=== PATIENT | female | born 1960 | race Caucasian/White ===

== ENCOUNTER 2016-10-03 04:41 | Emergency (ER) | payer OTHER ==
[2016-10-03] MEDS ORDERED: IPRATROPIUM/ALBUTEROL 3 ML NEB INH STA (04:49)
[2016-10-03] MEDS ORDERED: IPRATROPIUM/ALBUTEROL 3 ML NEB INH ONE (04:54)
[2016-10-03] MEDS ORDERED: DEXAMETHASONE 10 MG/ML VIAL PO STA (05:31)
[2016-10-03] MEDS ORDERED: CHERRY SYRUP 10 ML UDC PO ONE (05:32)
[2016-10-03] MEDS ORDERED: DEXAMETHASONE 10 MG/ML VIAL ONE (05:32)
[2016-10-03] MEDS ORDERED: POTASSIUM BICARB 25 MEQ TABLET PO STA (06:09)
[2016-10-03] MEDS ORDERED: POTASSIUM BICARB 25 MEQ TABLET PO ONE (06:10)
== END 2016-10-03 06:20 | disposition home or self-care (01) ==
DX: J06.9 Acute upper respiratory infection, unspecified (principal); B97.89 Other viral agents as the cause of diseases classified elsewhere; J44.9 Chronic obstructive pulmonary disease, unspecified; J45.909 Unspecified asthma, uncomplicated; I10 Essential (primary) hypertension; Z79.82 Long term (current) use of aspirin
CPT/HCPCS: 36415; 71020; 80053; 83690; 84484; 85025; 93005; 93010; 94640; 99284; A9270; J7620

== ENCOUNTER 2020-03-29 19:13 | Emergency (ER) | payer OTHER ==
[2020-03-29 19:25] VITALS: BP 140/76
[2020-03-29] MEDS ORDERED: BUFFERED LIDOCAINE 10 ML SYRINGE SUBQ STA (20:23)
--- NOTE | 2020-03-29 20:24 | ED Physician Documentation ---
History of Present Illness - Stated complaint Stated Complaint: INGUINAL INFLAMATION - Chief complaint Chief Complaint: General - History obtained from History obtained from: Patient - Additonal information Additional information: She had an ingrown hair about 5 days ago that she pulled out, subsequently got a red swollen area in the left inguinal area. She was seen in urgent care 2 days ago and started on Bactrim, but got worried tonight because of more discoloration. Other than that she has no specific complaints. Pain is not worsening. No fevers. Review of Systems Constitutional: denies: Fever, Chills GI: denies: Abdominal Pain, Nausea, Vomiting : reports: Reviewed and negative PD PAST MEDICAL HISTORY - Past Medical History Cardiovascular: Hypertension Respiratory: Asthma - Past Surgical History Past Surgical History: Yes - Present Medications Home Medications: Ambulatory Orders Medication Instructions Recorded Confirmed Albuterol Sulf [Ventolin Hfa 1 - 2 puffs INH Q4HR PRN 10/03/16 10/03/16 Inhaler] Aspirin 81 mg PO DAILY 10/03/16 10/03/16 Azithromycin 250 mg PO DAILY 10/03/16 10/03/16 Metoprolol Tartrate 25 mg ORAL DAILY 10/03/16 10/03/16 Telmisartan [Micardis] 20 mg PO DAILY 10/03/16 10/03/16 predniSONE [Prednisone] 50 mg PO DAILY 10/03/16 10/03/16 - Allergies Allergies/Adverse Reactions: Allergies Allergy/AdvReac Type Severity Reaction Status Date / Time No Known Drug Allergies Allergy Verified 03/29/20 19:18 - Social History Does the pt smoke?: No Smoking Status: Never smoker Does the pt drink ETOH?: No Does the pt have substance abuse?: No - Immunizations Immunizations are current?: Yes - POLST Patient has POLST: No PD ED PE NORMAL - Vitals Vital signs reviewed: Yes - General General: Alert and oriented X 3, No acute distress - Derm Derm: Other (There is a pointed 2 cm abscess on the left side of the pubic mons with mild overlying cellulitis) - Extremities Extremities: No edema, No calf tenderness / cord - Neuro Neuro: Alert and oriented X 3, Normal speech Results - Vitals Vitals: Vital Signs - 24 hr 03/29/20 19:18 Temperature 36.6 C Heart Rate 87 Respiratory 16 Rate Blood Pressure 140/76 H O2 Saturation 97 Oxygen O2 Source Room air - Labs Labs: Microbiology 03/29/20 20:40 Wound Culture - Preliminary Abscess Procedures - Abscess I&D (location) L inguinal Preparation: Alcohol, Lidocaine 1% Incision: Incised with scalpel, Purulent drainage, Loculations broken, Culture obtained Other: Pt tolerated well, Dressing applied. No: Antibiotic prescribed (already on bactrim) Departure - Departure Disposition: 01 Home, Self Care Clinical Impression: Inguinal abscess Condition: Good Instructions: ED Abscess IandD Comments: We are performing a wound culture, the results should be done in 48-72 hours. If antibiotic change is necessary we will call you. Return if worse in the meantime, especially if you develop increased pain, fevers, cannot keep down the medication. Otherwise follow-up with your physician in approximately 2-3 days. For now continue the Bactrim. Discharge Date/Time: 03/29/20 20:49
== END 2020-03-29 20:49 | disposition home or self-care (01) ==
LOC: ED 19:13
DX: L02.214 Cutaneous abscess of groin (principal)
CPT/HCPCS: 10060; 87070; 87205

== ENCOUNTER 2020-03-30 14:41 | Inpatient (IN) | payer OTHER ==
--- NOTE | 2020-03-30 15:29 | ED Physician Documentation ---
PD HPI NVD - Chief complaint Chief Complaint: Fever - History obtained from History obtained from: Patient - History of Present Illness Timing - onset: How many days ago (5-6) Timing - duration: Days (Issue with some swelling and tenderness in the left inguinal area 5 to 6 days ago that did increase. She was seen in the office 3 days ago and prescribed Bactrim. She was on that couple of days with still worsening local swelling. Seen here yesterday for I&D. General malaise and fevers overnight.) Timing - details: Gradual onset, Still present Associated symptoms: Fever, Loss of appetite, Other (fatigue and general malaise last night/today). No: Abdominal pain Contributing factors: Recent antibiotics. No: Sick contact, Bad food Worsened by: Palpation Recently seen: Clinic, Emergency Dept Review of Systems Constitutional: reports: Fever, Chills, Myalgias, Fatigue Nose: denies: Rhinorrhea / runny nose, Congestion Throat: denies: Sore throat Respiratory: denies: Cough GI: reports: Nausea. denies: Abdominal Pain, Vomiting, Diarrhea Neurologic: reports: Generalized weakness. denies: Focal weakness, Numbness, Near syncope, Headache PD PAST MEDICAL HISTORY - Past Medical History Cardiovascular: Hypertension Respiratory: Asthma - Past Surgical History Past Surgical History: Yes - Present Medications Home Medications: Ambulatory Orders Medication Instructions Recorded Confirmed Albuterol Sulf [Ventolin Hfa 1 - 2 puffs INH Q4HR PRN 10/03/16 10/03/16 Inhaler] Aspirin 81 mg PO DAILY 10/03/16 10/03/16 Azithromycin 250 mg PO DAILY 10/03/16 10/03/16 Metoprolol Tartrate 25 mg ORAL DAILY 10/03/16 10/03/16 Telmisartan [Micardis] 20 mg PO DAILY 10/03/16 10/03/16 predniSONE [Prednisone] 50 mg PO DAILY 10/03/16 10/03/16 - Allergies Allergies/Adverse Reactions: Allergies Allergy/AdvReac Type Severity Reaction Status Date / Time No Known Drug Allergies Allergy Verified 03/30/20 15:00 - Social History Does the pt smoke?: No Smoking Status: Never smoker Does the pt drink ETOH?: No Does the pt have substance abuse?: No - Immunizations Immunizations are current?: Yes - POLST Patient has POLST: No PD ED PE NORMAL - Vitals Vital signs reviewed: Yes - General General: Alert and oriented X 3, Well developed/nourished - HEENT HEENT: Moist mucous membranes - Neck Neck: Supple, no meningeal sign, No adenopathy - Cardiac Cardiac: RRR, No murmur - Respiratory Respiratory: Clear bilaterally - Abdomen Abdomen: Soft, Non tender - Back Back: No CVA TTP - Derm Derm: Normal color, Warm and dry, Other (Left inguinal area with open wound consistent with I&D. Mild draining of blood. No purulence expressed. There is some induration in the area but no fluctuance. No deeper tenderness noted) - Neuro Neuro: Alert and oriented X 3, No motor deficit, Normal speech Results - Vitals Vitals: Vital Signs - 24 hr 03/30/20 03/30/20 03/30/20 15:00 15:42 16:19 Temperature 39.2 C H 39.1 C H 39.5 C H Heart Rate 93 88 84 Respiratory 16 18 18 Rate Blood Pressure 136/60 H 124/61 109/66 O2 Saturation 94 96 98 03/30/20 17:26 Temperature 38.8 C H Heart Rate 81 Respiratory 18 Rate Blood Pressure 112/57 L O2 Saturation 98 Oxygen O2 Source Room air - Labs Labs: Laboratory Tests 03/30/20 03/30/20 03/30/20 15:21 15:21 15:21 WBC 8.3 RBC 4.64 Hgb 13.6 Hct 39.5 MCV 85.1 MCH 29.3 MCHC 34.4 RDW 13.2 Plt Count 190 MPV 9.3 Neut # (Auto) 7.5 H Lymph # (Auto) 0.3 L [place] # (Auto) 0.4 Eos # (Auto) 0.0 Baso # (Auto) 0.0 Absolute Nucleated RBC 0.00 Nucleated RBC % 0.0 PT 13.4 H INR 1.2 APTT 25.0 Sodium 131 L Potassium 3.4 L Chloride 93 L Carbon Dioxide 26 Anion Gap 12.0 BUN 13 Creatinine 0.9 Estimated GFR (MDRD) 64 L Glucose 127 H Lactic Acid Calcium 9.2 Total Bilirubin 1.0 AST 15 ALT 21 Alkaline Phosphatase 75 Total Protein 8.0 Albumin 4.2 Globulin 3.8 Albumin/Globulin Ratio 1.1 Lipase 27 Urine Color Urine Clarity Urine pH Ur Specific [place] Urine Protein Urine Glucose (UA) Urine Ketones Urine Occult Blood Urine Nitrite Urine Bilirubin Urine Urobilinogen Ur Leukocyte Esterase Ur Microscopic Review Urine Culture Comments 03/30/20 03/30/20 15:27 17:20 WBC RBC Hgb Hct MCV MCH MCHC RDW Plt Count MPV Neut # (Auto) Lymph # (Auto) [place] # (Auto) Eos # (Auto) Baso # (Auto) Absolute Nucleated RBC Nucleated RBC % PT INR APTT Sodium Potassium Chloride Carbon Dioxide Anion Gap BUN Creatinine Estimated GFR (MDRD) Glucose Lactic Acid 1.0 Calcium Total Bilirubin AST ALT Alkaline Phosphatase Total Protein Albumin Globulin Albumin/Globulin Ratio Lipase Urine Color YELLOW Urine Clarity CLEAR Urine pH 5.5 Ur Specific [place] 1.025 Urine Protein NEGATIVE Urine Glucose (UA) NEGATIVE Urine Ketones NEGATIVE Urine Occult Blood MODERATE H Urine Nitrite NEGATIVE Urine Bilirubin NEGATIVE Urine Urobilinogen 0.2 (NORMAL) Ur Leukocyte Esterase NEGATIVE Ur Microscopic Review INDICATED Urine Culture Comments Not Reportable PD MEDICAL DECISION MAKING - ED course Complexity details: reviewed results (No drainable or deeper abscess noted. No soft tissue findings to suggest necrotizing fasciitis.), re-evaluated patient (Her sepsis markers are negative with a normal white count and lactate. Her heart rate is normal. Her blood pressure is normal though it did decrease some in the ER so a bit softer blood pressure. She does have a fever.), considered differential (He presents with general fatigue and malaise and fever in the setting of inguinal abscess that had I&D yesterday. Concern for potential bacteremia or early sepsis.), d/w patient Departure - Departure Disposition: ED Place in Observation Clinical Impression: Inguinal abscess, Malaise and fatigue Fever Qualifiers: Fever type: unspecified Qualified Code(s): R50.9 - Fever, unspecified Condition: Stable Record reviewed to determine appropriate education?: Yes
[2020-03-30 15:36] LABS: BASOPHILS % (AUTO) 0.5 %; EOSINOPHILS % (AUTO) 0.1 %; HGB - HEMOGLOBIN 13.6 g/dL (12.0-16.0); LYMPHOCYTES # (AUTO) 0.3 10^3/uL (1.5-3.5); LYMPHOCYTES % (AUTO) 3.1 %; MEAN CORPUSCULAR HEMOGLOBIN 29.3 pg (27.0-31.0); MEAN CORPUSCULAR HGB CONC 34.4 g/dL (32.0-36.0); MEAN CORPUSCULAR VOLUME 85.1 fL (81.0-99.0); MEAN PLATELET VOLUME 9.3 fL (7.9-10.8); MONOCYTES # (AUTO) 0.4 10^3/uL (0.0-1.0); MONOCYTES % (AUTO) 4.9 %; NEUTROPHILS # (AUTO) 7.5 10^3/uL (1.5-6.6); PLT - PLATELET COUNT 190 10^3/uL (130-450); RED BLOOD COUNT 4.64 10^6/uL (4.20-5.40); RED CELL DISTRIBUTION WIDTH 13.2 % (12.0-15.0); WHITE BLOOD COUNT 8.3 x10^3/uL (4.8-10.8)
[2020-03-30 15:39] LABS: INR 1.2 (0.8-1.2); PT - PROTHROMBIN TIME 13.4 secs (9.9-12.6)
[2020-03-30 15:45] LABS: ALBUMIN 4.2 g/dL (3.2-5.5); ALBUMIN/GLOBULIN RATIO 1.1 (1.0-2.2); CALCIUM 9.2 mg/dL (8.5-10.3); CREATININE 0.9 mg/dL (0.4-1.0)
[2020-03-30] MEDS ORDERED: CLINDAMYCIN 900 MG/50 ML 50 ML IV ONE (15:53)
[2020-03-30] MEDS ORDERED: SODIUM CHLORIDE 0.9% 1,000 ML IV STA ×2 (15:56→16:42)
[2020-03-30] MEDS ORDERED: ACETAMINOPHEN 325 MG TABLET PO STA (16:20)
[2020-03-30] MEDS ORDERED: IOVERSOL 320 100 ML VIAL IVP ONE ×2 (16:47→17:07)
--- NOTE | 2020-03-30 17:30 | CT Report ---
PROCEDURE: PELVIS W INDICATIONS: abscess left inguinal area; eval for deeper extens CONTRAST: IV CONTRAST: Optiray 320 ml: 100 PO CONTRAST: *NO PO CONTRAST TECHNIQUE: After the administration of oral contrast and intravenous contrast, 5 mm thick sections acquired from the iliac crests to the symphysis. 5 mm thick coronal and sagittal reformats were acquired. For ra diation dose reduction, the following was used: automated exposure control, adjustment of mA and/or kV according to patient size. COMPARISON: None FINDINGS: Image quality: Excellent. Peritoneum and bowel: Contrast enhanced bowel loops demonstrate normal wall thickness and caliber. No free fluid or air. Mild sigmoid diverticulosis is seen, without findings of active diverticulitis . A normal appendix is incidentally noted. Genitourinary: Bladder wall thickness is normal. Fibroid uterus can be seen. No constantino adnexal masses are seen. Nodes and vessels: No iliac, pelvic, or inguinal adenopathy. Iliac vessels demonstrate normal size and enhancement. Bones: No suspicious bony lesions. Degenerative changes are seen, particularly involving the visual ized lower lumbar spine. Miscellaneous: Within the left groin, partially involving the left labia majora, there is focal enha ncement seen with surrounding inflammatory changes within the fat. This is best seen on series 5 imag e 24 and on series 3 image 50. No focal fluid collection is seen to suggest an abscess, however. IMPRESSION: No drainable abscess is seen within the left groin. The imaging appearance is most consistent with ad vanced cellulitis and potentially early phlegmon. Incidental note is made of: Normal appendix Fibroid uterus Diverticulosis can be seen, without constantino findings of active diverticulitis. Reviewed by: Hansel Courtney MD on 03/30/2020 4:28 PM AKJOSÉ Approved by: Hansel Courtney MD on 03/30/2020 4:28 PM AKDT Station ID: [id number]
[2020-03-30 17:36] LABS: BILIRUBIN,URINE NEGATIVE (NEGATIVE); GLUCOSE, URINE (UA) NEGATIVE (NEGATIVE); KETONES,URINE (UA) NEGATIVE (NEGATIVE); LEUKOCYTE ESTERASE, URINE NEGATIVE (NEGATIVE); NITRITE,URINE NEGATIVE (NEGATIVE); OCCULT BLOOD,URINE MODERATE (NEGATIVE); PH,URINE 5.5 PH (5.0-7.5); PROTEIN,URINE NEGATIVE (NEGATIVE); UROBILINOGEN,URINE 0.2 (NORMAL) E.U./dL (NORMAL)
[2020-03-30 17:38] LABS: CLARITY,URINE CLEAR (CLEAR)
[2020-03-30] MEDS ORDERED: ACETAMINOPHEN 325 MG TABLET PO PRN (17:41)
[2020-03-30] MEDS ORDERED: ONDANSETRON ODT 4 MG TABLET TL PRN (17:41)
[2020-03-30] MEDS ORDERED: ONDANSETRON 4 MG/2 ML VIAL IVP PRN (17:41)
[2020-03-30] MEDS ORDERED: oxyCODONE 5 MG TABLET PO PRN (17:41)
[2020-03-30 17:48] LABS: BACTERIA,URINE None Seen /HPF (None Seen); RBC,URINE 0-5 /HPF (0-5); SQUAMOUS EPITHELIAL CELL,UR NONE SEEN (<= Few)
[2020-03-30] MEDS: CLINDAMYCIN 600 MG/50 ML 50 ML IV SCH (19:27)
[2020-03-30] MEDS: LACTATED RINGERS 1,000 ML IV SCH (19:49)
--- NOTE | 2020-03-30 21:02 | HISTORY & PHYSICAL EXAMINATION ---
Chief Complaint - Chief Complaint Chief Complaint: fever, left inguinal/groin swelling History of Present Illness - Admitted From Admitted From:: [facility] ED - History Obtained From Records Reviewed: Yes History obtained from: Patient - History of Present Illness HPI Comment/Other: Patient is a 59-year-old female with history of hypertension who presented to the ED with complaint of a fever, and increased redness around her left groin abscess site. She was seen by her primary care physician 3 days ago when she initially started noticing redness and swelling in the area. She was prescribed Bactrim which she has been taking. At the time of prescription she was advised to go to the ED or return to her PCP if there was increase redness or swelling in the area. She presented to the emergency department at [facility] on March 29, 2020 for increased redness. The abscess was incised and drained. Since drainage yesterday she has not been feeling well and presented today with reported temperature of 39.5 C. Her labs were unremarkable however due to the fever and increased swelling she is being admitted for IV antibiotics and closer monitoring. At bedside she denied chest pain, dyspnea, abdominal pain, nausea, vomiting or lower extremity edema. History - Past Medical History Cardiovascular: reports: Hypertension Respiratory: reports: Asthma Neuro: reports: None Endocrine/Autoimmune: reports: None GI: reports: None BUNDLE TIER AND LABELER: reports: None : reports: None HEENT: reports: None Psych: reports: None Musculoskeletal: reports: None Derm: reports: None MRSA Hx?: No - Past Surgical History /BUNDLE TIER AND LABELER: reports: Tubal ligation - Family & Social History Family History Comment/Other: Patient reports extensive family history of CVA in her grandparents on both sides of the family and hypertension. Living arrangement: At home Living Situation: With spouse/s.o. Social History Notes: She denied tobacco use, she rarely drinks alcohol and denies recreational substance use. - POLST Patient has POLST: No POLST Status: Full Code Meds/Allgy - Home Medications Home Medications: Ambulatory Orders Medication Instructions Recorded Confirmed Albuterol Sulf [Ventolin Hfa 1 - 2 puffs INH Q4HR PRN 10/03/16 10/03/16 Inhaler] Aspirin 81 mg PO DAILY 10/03/16 10/03/16 Azithromycin 250 mg PO DAILY 10/03/16 10/03/16 Metoprolol Tartrate 25 mg ORAL DAILY 10/03/16 10/03/16 Telmisartan [Micardis] 20 mg PO DAILY 10/03/16 10/03/16 predniSONE [Prednisone] 50 mg PO DAILY 10/03/16 10/03/16 - Allergies Allergies/Adverse Reactions: Allergies Allergy/AdvReac Type Severity Reaction Status Date / Time No Known Drug Allergies Allergy Verified 03/30/20 15:00 Review of Systems - Constitutional Constitutional: reports: Fever, Malaise. denies: Weakness - Eyes Eyes: denies: Pain - Ears, Nose & Throat Ears, Nose & Throat: denies: Ear pain - Cardiovascular Cariovascular: denies: Irregular heart rate, Chest pain, Edema, Lightheadedness - Respiratory Respiratory: denies: Cough, Sputum production, Wheezing, SOB at rest, SOB with exertion - Gastrointestinal Gastrointestinal: denies: Abdominal pain - Genitourinary Genitourinary: denies: Dysuria, Frequency, Urgency, Hematuria - Musculoskeletal Musculoskeletal: denies: Muscle pain, Back pain - Integumentary Integumentary: denies: Rash, Pruritis - Neurological Neurological: denies: General weakness, Focal weakness, Headache, Dizziness - Psychiatric Psychiatric: denies: Depression, Anxiety - Endocrine Endocrine: denies: Polyuria, Polydypsia - Hematologic/Lymphatic Hematologic/Lymphatic: denies: Anemia, Bruising, Petechiae Prior Level of Functionality: She is independent of activities of daily living Exam - Vital Signs Vital Signs: Vital Signs x48h Temp Pulse Pulse Resp BP BP Pulse Ox 03/30/20 20:16 37.5 C 78 20 108/51 L 99 03/30/20 18:30 37.6 C H 79 19 109/57 L 97 03/30/20 18:00 77 112/53 L 97 03/30/20 17:26 38.8 C H 81 18 112/57 L 98 03/30/20 16:19 39.5 C H 84 18 109/66 98 03/30/20 15:42 39.1 C H 88 18 124/61 96 03/30/20 15:00 39.2 C H 93 16 136/60 H 94 - Physical Exam General Appearance: positive: No acute distress, Alert Eyes Bilateral: positive: PERRL, EOMI ENT: positive: No signs of dehydration Neck: positive: No JVD, Trachea midline Respiratory: positive: Chest non-tender, No respiratory distress, Breath sounds nml. negative: Wheezes, Rales, Rhonchi Cardiovascular: positive: Regular rate & rhythm, No murmur Abdomen: positive: Non-tender, No organomegaly, Nml bowel sounds, No distention. negative: Guarding, Rebound Back: positive: Nml inspection Skin: positive: Other (redness around incision site on left groin) Extremities: positive: Nml appearance, No pedal edema Neurologic/Psychiatric: positive: Oriented x3, Motor nml, Sensation nml, Mood/af fect nml Conclusion/Plan - Problem List (1) Inguinal abscess Conclusion/Plan: Status post I&D yesterday. Patient was started on IV clindamycin. Will continue. We will monitor CBC and vitals. Blood cultures pending. (2) Hypertension Conclusion/Plan: Patient is on metoprolol and Micardis. Will resume once verified. - Lab Results Fish Bones: 03/30/20 15:21 03/30/20 15:21 Core Measures - Anticipated LOS I expect patient to be DC'd or transferred within 96 hours.: Yes - DVT/VTE - Prophylaxis VTE/DVT Device ordered at admit?: Yes
[2020-03-30] MEDS: ACETAMINOPHEN 325 MG TABLET PO PRN (22:06)
[2020-03-31] MEDS: CLINDAMYCIN 600 MG/50 ML 50 ML IV SCH ×2 (00:40→06:55)
[2020-03-31] MEDS: IBUPROFEN 400 MG TABLET PO PRN ×2 (00:41→14:39)
[2020-03-31] MEDS: SODIUM CHLORIDE FLUSH 0.9% 10 ML SYRINGE IVP SCH ×3 (02:50→10:37)
[2020-03-31 05:32] LABS: BASOPHILS % (AUTO) 0.8 %; EOSINOPHILS # (AUTO) 0.1 10^3/uL (0.0-0.7); EOSINOPHILS % (AUTO) 1.9 %; HGB - HEMOGLOBIN 11.3 g/dL (12.0-16.0); LYMPHOCYTES # (AUTO) 0.5 10^3/uL (1.5-3.5); LYMPHOCYTES % (AUTO) 12.9 %; MEAN CORPUSCULAR HEMOGLOBIN 28.9 pg (27.0-31.0); MEAN CORPUSCULAR HGB CONC 33.5 g/dL (32.0-36.0); MEAN CORPUSCULAR VOLUME 86.2 fL (81.0-99.0); MEAN PLATELET VOLUME 9.4 fL (7.9-10.8); MONOCYTES # (AUTO) 0.3 10^3/uL (0.0-1.0); MONOCYTES % (AUTO) 8.2 %; NEUTROPHILS # (AUTO) 2.8 10^3/uL (1.5-6.6); NEUTROPHILS % (AUTO) 75.7 %; PLT - PLATELET COUNT 154 10^3/uL (130-450); RED BLOOD COUNT 3.91 10^6/uL (4.20-5.40); RED CELL DISTRIBUTION WIDTH 13.2 % (12.0-15.0); WHITE BLOOD COUNT 3.6 x10^3/uL (4.8-10.8)
[2020-03-31 05:48] LABS: CALCIUM 8.2 mg/dL (8.5-10.3); CREATININE 0.9 mg/dL (0.4-1.0); CRP - C-REACTIVE PROTEIN 8.7 mg/dL (0-1.0)
[2020-03-31] MEDS: LACTATED RINGERS 1,000 ML IV SCH (06:10)
[2020-03-31] MEDS ORDERED: LACTATED RINGERS 1,000 ML IV ONE (06:52)
[2020-03-31] MEDS ORDERED: POTASSIUM CHLORIDE 20 MEQ TABLET PO ONE (07:06)
--- NOTE | 2020-03-31 09:47 | XRAY Report ---
PROCEDURE: Chest 1 View X-Ray INDICATIONS: sepsis TECHNIQUE: One view of the chest was acquired. COMPARISON: Chest x-ray 10/03/2016 FINDINGS: Surgical changes and devices: None. Lungs and pleura: No pleural effusions or pneumothorax. Lungs are clear. Mediastinum: Mediastinal contours appear normal. Heart size is normal. Bones and chest wall: No suspicious bony lesions. Overlying soft tissues appear unremarkable. IMPRESSION: No acute pulmonary process. Reviewed by: Radha Mantilla MD on 03/31/2020 9:46 AM PDT Approved by: Radha Mantilla MD on 03/31/2020 9:46 AM PDT Station ID: [id number]
[2020-03-31] MEDS ORDERED: PIPERACILLIN/TAZOBACTAM 3.375 GM in SODIUM CHLORIDE 0.9% MINIBAG 100 ML IV SCH (10:00)
--- NOTE | 2020-03-31 10:43 | PHARMACY PROGRESS NOTE ---
- Best Possible Medication History Admit Date and Time: 03/31/20 0715 Processed by: Pharmacy Medication History completed: Yes Patient Interview: Completed Secondary Source(s): Insurance records As the person ultimately responsible for medication therapy, providers are able to order a medication from an existing home medication list in [facility] via the "Reconcile Routine" prior to Confirmation of that medication by bioinformatics support specialist. Such practice is discouraged except when the physician, in their clinical judgment, deems that a medical need exists for a medication without regard to previous use.
[2020-03-31] MEDS: PIPERACILLIN/TAZOBACTAM 3.375 GM in SODIUM CHLORIDE 0.9% MINIBAG 100 ML IV SCH ×2 (14:16→21:52)
[2020-03-31] MEDS: SODIUM CHLORIDE FLUSH 0.9% 10 ML SYRINGE IVP PRN (14:17)
--- NOTE | 2020-03-31 15:32 | PROVIDER PROGRESS NOTE ---
Subjective - Prog Note Date Prog Note Date: 03/31/20 Prog Note Time: 15:35 - Subjective Subjective: Overnight she continues to spike temperatures. This morning she became suddenly hypotensive. Mildly diaphoretic. She denies chest pain, cough, sore throat. No change in abdominal complaints. The only thing that she can feel is wrong with her is the groin but even then that is not as symptomatic as it was. Current Medications - Current Medications Current Medications: Active Medications Acetaminophen (Tylenol) 650 mg PO Q4HR PRN PRN Reason: Pain or Fever > 38C (100.4F) Last Admin: 03/30/20 22:06 Dose: 650 mg Documented by: Piperacillin Sod/Tazobactam (Sod 3.375 gm/ Sodium Chloride) 100 mls @ 200 mls/hr IV ONCE [facility] Stop: 03/31/20 18:00 Last Admin: 03/31/20 10:37 Dose: 200 mls/hr Documented by: Piperacillin Sod/Tazobactam (Sod 3.375 gm/ Sodium Chloride) 100 mls @ 25 mls/hr IV Q8H [facility] Last Admin: 03/31/20 14:16 Dose: 25 mls/hr Documented by: Ibuprofen (Motrin) 400 mg PO Q6HR PRN PRN Reason: PAIN Last Admin: 03/31/20 14:39 Dose: 400 mg Documented by: Ondansetron HCl (Zofran Odt) 4 mg TL Q6HR PRN PRN Reason: Nausea / Vomiting Ondansetron HCl (Zofran Inj) 4 mg IVP Q6HR PRN PRN Reason: Nausea / Vomiting Oxycodone HCl (Roxicodone) 5 mg PO Q4HR PRN PRN Reason: Pain 5 to 7 Sodium Chloride (Normal Saline Flush 0.9%) 10 ml IVP PRN PRN PRN Reason: NEEDED PER PROVIDER ORDERS Last Admin: 03/31/20 14:17 Dose: 10 ml Documented by: Sodium Chloride (Normal Saline Flush 0.9%) 10 ml IVP 0100,0900,1700 [facility] Last Admin: 03/31/20 10:37 Dose: 10 ml Documented by: Albuterol Sulf [Ventolin Hfa Inhaler] 1 - 2 puffs INH Q4HR PRN 10/03/16 Aspirin 81 mg PO Q2D 10/03/16 Metoprolol Tartrate 25 mg ORAL DAILY 10/03/16 Telmisartan [Micardis] 20 mg PO DAILY 10/03/16 Objective - Vital Signs/Intake & Output Reviewed Vital Signs: Yes Vital Signs: Vital Signs x48h Temp Pulse BP Pulse Ox 03/31/20 13:00 37.9 C H 86 134/60 H 100 03/31/20 08:14 36.8 C 72 90/46 L 100 Intake & Output: Intake & Output 03/28/20 03/29/20 03/30/20 03/31/20 23:59 23:59 23:59 23:59 Intake Total 2200 2350 Balance 2200 2350 - Objective General Appearance: positive: No acute distress, Alert Eyes Bilateral: positive: PERRL ENT: positive: Pharynx nml Neck: positive: No JVD. negative: Lymphadenopathy (R), Lymphadenopathy (L), Stiff neck Respiratory: positive: Chest non-tender. negative: Wheezes, Rales, Rhonchi Cardiovascular: positive: Regular rate & rhythm. negative: Gallop/S4, Friction rub Abdomen: positive: Non-tender, No organomegaly, Nml bowel sounds, No distention Skin: positive: Warm, Dry Extremities: positive: Non-tender, No pedal edema, Other (Groin has the incision, labia slightly tender warm but there is no spreading cellulitis. There is no bulging. There is significant no significant heat.) Neurologic/Psychiatric: positive: Oriented x3, CN's nml (2-12), Motor nml - Lab Results Fish Bones: 03/31/20 05:10 03/31/20 05:10 Other Labs: Lab Results x24hrs 03/31/20 03/31/20 03/31/20 Range/Units 07:31 05:10 05:10 WBC 3.6 L (4.8-10.8) x10^3/uL RBC 3.91 L (4.20-5.40) 10^6/uL Hgb 11.3 L (12.0-16.0) g/dL Hct 33.7 L (37.0-47.0) % MCV 86.2 (81.0-99.0) fL MCH 28.9 (27.0-31.0) pg MCHC 33.5 (32.0-36.0) g/dL RDW 13.2 (12.0-15.0) % Plt Count 154 (130-450) 10^3/uL MPV 9.4 (7.9-10.8) fL Neut # (Auto) 2.8 (1.5-6.6) 10^3/uL Lymph # (Auto) 0.5 L (1.5-3.5) 10^3/uL [place] # (Auto) 0.3 (0.0-1.0) 10^3/uL Eos # (Auto) 0.1 (0.0-0.7) 10^3/uL Baso # (Auto) 0.0 (0.0-0.1) 10^3/uL Absolute Nucleated RBC 0.00 x10^3/uL Nucleated RBC % 0.0 /100WBC PT (9.9-12.6) secs INR (0.8-1.2) APTT (24.9-33.3) secs Sodium 136 (135-145) mmol/L Potassium 3.2 L (3.5-5.0) mmol/L Chloride 100 L (101-111) mmol/L Carbon Dioxide 27 (21-32) mmol/L Anion Gap 9.0 (6-13) BUN 13 (6-20) mg/dL Creatinine 0.9 (0.4-1.0) mg/dL Estimated GFR (MDRD) 64 L (>89) Glucose 126 H (70-100) mg/dL Lactic Acid 0.8 (0.5-2.2) mmol/L Calcium 8.2 L (8.5-10.3) mg/dL Total Bilirubin (0.2-1.0) mg/dL AST (10-42) IU/L ALT (10-60) IU/L Alkaline Phosphatase (42-121) IU/L C-Reactive Protein 8.7 H (0-1.0) mg/dL Total Protein (6.7-8.2) g/dL Albumin (3.2-5.5) g/dL Globulin (2.1-4.2) g/dL Albumin/Globulin Ratio (1.0-2.2) Lipase (22-51) U/L Urine Color Urine Clarity (CLEAR) Urine pH (5.0-7.5) PH Ur Specific [place] (1.002-1.030) Urine Protein (NEGATIVE) mg/dL Urine Glucose (UA) (NEGATIVE) mg/dL Urine Ketones (NEGATIVE) mg/dL Urine Occult Blood (NEGATIVE) Urine Nitrite (NEGATIVE) Urine Bilirubin (NEGATIVE) Urine Urobilinogen (NORMAL) E.U./dL Ur Leukocyte Esterase (NEGATIVE) Urine RBC (0-5) /HPF Urine WBC (0-5) /HPF Ur Squamous Epith Cells (<= Few) Urine Bacteria (None Seen) /HPF Ur Microscopic Review Urine Culture Comments 03/30/20 03/30/20 03/30/20 Range/Units 17:20 15:27 15:21 WBC (4.8-10.8) x10^3/uL RBC (4.20-5.40) 10^6/uL Hgb (12.0-16.0) g/dL Hct (37.0-47.0) % MCV (81.0-99.0) fL MCH (27.0-31.0) pg MCHC (32.0-36.0) g/dL RDW (12.0-15.0) % Plt Count (130-450) 10^3/uL MPV (7.9-10.8) fL Neut # (Auto) (1.5-6.6) 10^3/uL Lymph # (Auto) (1.5-3.5) 10^3/uL [place] # (Auto) (0.0-1.0) 10^3/uL Eos # (Auto) (0.0-0.7) 10^3/uL Baso # (Auto) (0.0-0.1) 10^3/uL Absolute Nucleated RBC x10^3/uL Nucleated RBC % /100WBC PT (9.9-12.6) secs INR (0.8-1.2) APTT (24.9-33.3) secs Sodium 131 L (135-145) mmol/L Potassium 3.4 L (3.5-5.0) mmol/L Chloride 93 L (101-111) mmol/L Carbon Dioxide 26 (21-32) mmol/L Anion Gap 12.0 (6-13) BUN 13 (6-20) mg/dL Creatinine 0.9 (0.4-1.0) mg/dL Estimated GFR (MDRD) 64 L (>89) Glucose 127 H (70-100) mg/dL Lactic Acid 1.0 (0.5-2.2) mmol/L Calcium 9.2 (8.5-10.3) mg/dL Total Bilirubin 1.0 (0.2-1.0) mg/dL AST 15 (10-42) IU/L ALT 21 (10-60) IU/L Alkaline Phosphatase 75 (42-121) IU/L C-Reactive Protein (0-1.0) mg/dL Total Protein 8.0 (6.7-8.2) g/dL Albumin 4.2 (3.2-5.5) g/dL Globulin 3.8 (2.1-4.2) g/dL Albumin/Globulin Ratio 1.1 (1.0-2.2) Lipase 27 (22-51) U/L Urine Color YELLOW Urine Clarity CLEAR (CLEAR) Urine pH 5.5 (5.0-7.5) PH Ur Specific [place] 1.025 (1.002-1.030) Urine Protein NEGATIVE (NEGATIVE) mg/dL Urine Glucose (UA) NEGATIVE (NEGATIVE) mg/dL Urine Ketones NEGATIVE (NEGATIVE) mg/dL Urine Occult Blood MODERATE H (NEGATIVE) Urine Nitrite NEGATIVE (NEGATIVE) Urine Bilirubin NEGATIVE (NEGATIVE) Urine Urobilinogen 0.2 (NORMAL) (NORMAL) E.U./dL Ur Leukocyte Esterase NEGATIVE (NEGATIVE) Urine RBC 0-5 (0-5) /HPF Urine WBC 0-3 (0-5) /HPF Ur Squamous Epith Cells NONE SEEN (<= Few) Urine Bacteria None Seen (None Seen) /HPF Ur Microscopic Review INDICATED Urine Culture Comments NOT INDICATED 03/30/20 03/30/20 Range/Units 15:21 15:21 WBC 8.3 (4.8-10.8) x10^3/uL RBC 4.64 (4.20-5.40) 10^6/uL Hgb 13.6 (12.0-16.0) g/dL Hct 39.5 (37.0-47.0) % MCV 85.1 (81.0-99.0) fL MCH 29.3 (27.0-31.0) pg MCHC 34.4 (32.0-36.0) g/dL RDW 13.2 (12.0-15.0) % Plt Count 190 (130-450) 10^3/uL MPV 9.3 (7.9-10.8) fL Neut # (Auto) 7.5 H (1.5-6.6) 10^3/uL Lymph # (Auto) 0.3 L (1.5-3.5) 10^3/uL [place] # (Auto) 0.4 (0.0-1.0) 10^3/uL Eos # (Auto) 0.0 (0.0-0.7) 10^3/uL Baso # (Auto) 0.0 (0.0-0.1) 10^3/uL Absolute Nucleated RBC 0.00 x10^3/uL Nucleated RBC % 0.0 /100WBC PT 13.4 H (9.9-12.6) secs INR 1.2 (0.8-1.2) APTT 25.0 (24.9-33.3) secs Sodium (135-145) mmol/L Potassium (3.5-5.0) mmol/L Chloride (101-111) mmol/L Carbon Dioxide (21-32) mmol/L Anion Gap (6-13) BUN (6-20) mg/dL Creatinine (0.4-1.0) mg/dL Estimated GFR (MDRD) (>89) Glucose (70-100) mg/dL Lactic Acid (0.5-2.2) mmol/L Calcium (8.5-10.3) mg/dL Total Bilirubin (0.2-1.0) mg/dL AST (10-42) IU/L ALT (10-60) IU/L Alkaline Phosphatase (42-121) IU/L C-Reactive Protein (0-1.0) mg/dL Total Protein (6.7-8.2) g/dL Albumin (3.2-5.5) g/dL Globulin (2.1-4.2) g/dL Albumin/Globulin Ratio (1.0-2.2) Lipase (22-51) U/L Urine Color Urine Clarity (CLEAR) Urine pH (5.0-7.5) PH Ur Specific [place] (1.002-1.030) Urine Protein (NEGATIVE) mg/dL Urine Glucose (UA) (NEGATIVE) mg/dL Urine Ketones (NEGATIVE) mg/dL Urine Occult Blood (NEGATIVE) Urine Nitrite (NEGATIVE) Urine Bilirubin (NEGATIVE) Urine Urobilinogen (NORMAL) E.U./dL Ur Leukocyte Esterase (NEGATIVE) Urine RBC (0-5) /HPF Urine WBC (0-5) /HPF Ur Squamous Epith Cells (<= Few) Urine Bacteria (None Seen) /HPF Ur Microscopic Review Urine Culture Comments ABX Reporting Has patient been on IV antibiotics over the past 48 hours?: Yes Assessment/Plan - Problem List (1) Hypotension Impression: The patient was observed overnight. Unfortunately she continued to have fevers. Then this morning she dropped her blood pressure. She had been started on clindamycin for empiric therapy of the groin abscess. CT already confirms there is nothing other than superficial infection.I repeated her review of systems and there is no cough, chest congestion, sore throat. No abdominal pain. No urgency frequency or dysuria. Skin and joints do not show any signs of infection. Plan: Changed to inpatient status Broaden antibiotic therapy to Zosyn and stop the clindamycin Treat possible impending sepsis with fluid bolus, and the change in antibiotics. (2) Inguinal abscess Conclusion/Plan: Status post I&D 03/29 Patient was started on IV clindamycin in ER after being on bactrim po. Stop clinda and change to Zosyn We will monitor CBC and vitals. Blood cultures are negative after 24 hours. (3) Hypertension Conclusion/Plan: Patient is on metoprolol and Micardis. Doses verified but we are holding until her BP stabilizes.
[2020-03-31] MEDS: ACETAMINOPHEN 325 MG TABLET PO PRN (16:30)
[2020-04-01] MEDS: SODIUM CHLORIDE FLUSH 0.9% 10 ML SYRINGE IVP SCH ×4 (00:37→23:47)
[2020-04-01] MEDS: PIPERACILLIN/TAZOBACTAM 3.375 GM in SODIUM CHLORIDE 0.9% MINIBAG 100 ML IV SCH ×3 (06:09→21:54)
[2020-04-01] MEDS: SODIUM CHLORIDE FLUSH 0.9% 10 ML SYRINGE IVP PRN ×3 (06:09→21:56)
[2020-04-01 07:49] LABS: BASOPHILS % (AUTO) 0.5 %; EOSINOPHILS # (AUTO) 0.1 10^3/uL (0.0-0.7); EOSINOPHILS % (AUTO) 1.4 %; HGB - HEMOGLOBIN 11.2 g/dL (12.0-16.0); LYMPHOCYTES # (AUTO) 0.9 10^3/uL (1.5-3.5); LYMPHOCYTES % (AUTO) 13.8 %; MEAN CORPUSCULAR HEMOGLOBIN 29.3 pg (27.0-31.0); MEAN CORPUSCULAR HGB CONC 34.3 g/dL (32.0-36.0); MEAN CORPUSCULAR VOLUME 85.6 fL (81.0-99.0); MONOCYTES # (AUTO) 0.7 10^3/uL (0.0-1.0); MONOCYTES % (AUTO) 10.3 %; NEUTROPHILS # (AUTO) 4.7 10^3/uL (1.5-6.6); NEUTROPHILS % (AUTO) 73.5 %; PLT - PLATELET COUNT 140 10^3/uL (130-450); RED BLOOD COUNT 3.82 10^6/uL (4.20-5.40); RED CELL DISTRIBUTION WIDTH 13.2 % (12.0-15.0); WHITE BLOOD COUNT 6.4 x10^3/uL (4.8-10.8)
[2020-04-01 08:00] LABS: CALCIUM 8.4 mg/dL (8.5-10.3); CREATININE 0.8 mg/dL (0.4-1.0)
--- NOTE | 2020-04-01 10:42 | PHARMACY PROGRESS NOTE ---
- Therapy Status Vancomycin regimen day #: 1 Therapy status: Awaiting steady state Basis for treatment: Empirical Treatment indication: abscess possible sepsis Trough goal: 15-20 Concurrent antibiotics: zosyn extended infusion - CHASE Risk Risk level for Acute Kidney Injury: High Acute Kidney Injury risk factors: Piperacillin/Tozobactam, IV contrast within 72 hrs, Goal trough >15, Chronic baseline hypertension - Monitoring and Recommendation Clinical response to treatment: I&O Previous 24 hours 03/30/20 03/31/20 04/01/20 23:59 23:59 23:59 Intake Total 2200 4010.083 312.917 Balance 2200 4010.083 312.917 Lab Results 04/01/20 03/31/20 03/30/20 07:43 05:10 15:21 BUN 7 13 13 Creatinine 0.8 0.9 0.9 Estimated GFR (MDRD) 73 L 64 L 64 L Cultures 03/30/20 15:27 Blood - Left Arm Blood Culture - Preliminary NO GROWTH AFTER 1 DAY 03/30/20 15:21 Blood - Right Arm Blood Culture - Preliminary NO GROWTH AFTER 1 DAY Monitoring plan: Daily serum creatinine, Draw trough early (while loading dose may still be reflected in result, drawing early to determine if dosing is supratherapeutic.), Suggest ongoing fluid replacement Next trough due prior to maintenance dose #: 2 Areas for additional monitoring: Therapy de-escalation based on culture results, Acute Kidney Injury, Adverse Drug Event concerns Pharmacy recommendation: Continue current regime
[2020-04-01] MEDS ORDERED: POTASSIUM CHLORIDE 20 MEQ TABLET PO ONE (10:45)
[2020-04-01] MEDS ORDERED: VANCOMYCIN INJ 2.5 GM in SODIUM CHLORIDE 0.9% 500 ML IV SCH (11:00)
[2020-04-01] MEDS: SACCHAROMYCES BOULARDII 250 MG CAPSULE PO SCH ×2 (11:38→17:06)
[2020-04-01] MEDS ORDERED: LIDOCAINE JELLY 2% 5 ML TUBE TOP SCH (13:00)
--- NOTE | 2020-04-01 14:13 | Ultrasound Report ---
PROCEDURE: Pelvic w/Transvaginal INDICATIONS: Labial abscess drained, has persistent fever TECHNIQUE: Real-time scanning was performed of the pelvic organs, with image documentation. Additional endovagi nal scanning was necessary due to incomplete visualization of the adnexal and endometrial structures by transabdominal scanning. COMPARISON: None. FINDINGS: Transabdominal scanning: Limited scanning through the kidneys shows no hydronephrosis. No pathologi c free abdominal or pelvic fluid. No drainable fluid collections in the area of previous abscess. Endovaginal scanning: Uterus: Uterus is anteverted and normal in size at 9.0 x 4.2 x 6.4 cm. The endometrium measures 3 m m in combined thickness. Indistinct myometrium with heterogeneous echotexture and possible fibroids, one in the mid anterior fundus measures 3.6 x 2.9 x 4.3 cm Ovaries: The ovaries are not seen. No suspicious adnexal masses or fluid collections. IMPRESSION: 1. No evidence of residual fluid in the region of recently drained labial abscess. 2. Heterogeneous, probably fibroid containing uterus. 3. Nonvisualized ovaries. No suspicious pelvic fluid or mass. 4. Preliminary results given by the forestry engineer to the ordering provider. Reviewed by: Kylah Ambrocio MD on 04/01/2020 1:12 PM GAETANO Approved by: Kylah Ambrocio MD on 04/01/2020 1:12 PM AKJOSÉ Station ID: [id number]
--- NOTE | 2020-04-01 15:03 | PREOP HISTORY & PHYSICAL ---
DATE OF SERVICE: 04/01/2020 Physician: James Santo MD IDENTIFICATION: The patient is a 59-year-old G6, P1-0-1-1 ectopic x2, reached menopause at roughly 56 years of age. CHIEF COMPLAINT: Left groin abscess. HISTORY OF PRESENT ILLNESS: The patient states on Tuesday, she felt some left inguinal or redness. , she woke and noted to be hot. She was seen in the urgent care clinic in [place], at which time she was placed on Bactrim. She was counseled that should this get progressively worse, she should present. On Tuesday she presented because of purpleness and the abscess was drained. She was sent home once again on antibiotic therapy. On the , she represented to the emergency room and because of failure to respond, she was hospitalized and placed on clindamycin. She denies any previous history of any similar episode. She does describe 10 years ago a history of having had chills, fevers of no particular cause. She denies any history of diabetes or SPIs. PAST MEDICAL HISTORY: Positive for hypertension as well as asthma. PAST SURGICAL HABITS: The patient has had an exploratory laparoscopy, which needed to be changed to a laparotomy secondary to intraoperative bleeding. She has also had both tubes resected secondary to ectopic . MEDICATIONS: The patient is takin. Metoprolol 25 mg daily. 2. Micardis 20 mg daily. 3. Aspirin 81 mg every other day. 4. Albuterol 1-2 puffs every 4 hours p.r.n., asthma. 5. She is also taking prednisone 50 mg. ALLERGIES: NONE KNOWN. HABITS: The patient denies use of tobacco, street or addictive drugs or marijuana. She does have a glass of wine once a month. SOCIAL HISTORY: Patient is and lives with spouse. Works as a homemaker. FAMILY HISTORY: Positive for mother who had a hysterectomy for prolapse. She denies any breast, ovarian or endometrial cancer. REVIEW OF SYSTEMS: Positive for glasses. She has had some nausea and diarrhea. She denies any rapid heartbeat, swelling of the anterior chest pain, chronic cough, sputum production, shortness of breath, joint pain, muscle weakness, seizures, loss of consciousness or migraines. PHYSICAL EXAM: GENERAL: The patient is a well-developed, well-nourished female. She is in no acute distress. On further query, she states her pain scale is roughly 2/10. 10/10 as the pain she was experiencing on admission. She states she feels markedly improved. ABDOMEN: Shows evidence of surgical scars. There was no evidence of any tenderness. No evidence of any rebound. Inguinal area shows no evidence of any inguinal lymphadenopathy. PELVIC: Upon inspecting the vulva, there is a 1.5 cm incision in the left mons area. This demonstrates no erythema. There is no discharge upon palpation. There is induration, which is minimally tender and tolerates palpation easily. Speculum examination of the vagina shows no evidence of any vaginal discharges or lesions. Internal examination shows no cervical motion tenderness. Uterine size and orientation cannot be palpated secondary to abdominal wall thickness. LABORATORY DATA: CBC on admission showed a white count of 8.3, hemoglobin was 13.6, platelets were 190. The following morning, her white count was 3.6, hemoglobin was 11.3, platelets had fallen to 154. Today, her white count is back up to 6.4, hemoglobin is 11.2, platelets are 140. The neutrophils are at 7.4. Her chemistries are unremarkable with the exception of a relative hypokalemia. The initial hyponatremia she has experienced has resolved. Her C- reactive protein, however, it was elevated at 8.7. Urines are unremarkable. Cultures are negative for any bacteria at this time. CT of the pelvis on admission shows an area in the left groin involving the left labia majora, which shows focal enhancement and surrounding inflammation of the fat. There were no fluid collections to suggest an abscess. She is noted to have fibroids on her uterus and also a normal appendix. There was some small amount of diverticulitis. ANTIBIOTIC COURSE: The patient was initially admitted on clindamycin for empiric therapy. No cultures were available. She has been switched to piperacillin with tazobactam as well as vancomycin. This was done on the . IMPRESSION: A 59-year-old female with solitary episode of left mons abscess, which was treated outpatient and failed to respond. She was treated empirically with clindamycin without adequate response and has been changed to vancomycin as well as piperacillin/tazobactam. Symptomatically, she appears to be improving. However, her temperatures have not defervesced at this point, completely. I have ordered an ultrasound of the pelvis looking for evidence of any other lesions or pathology. At this point, we will monitor her to see if she does not respond to IV antibiotics. I do not feel that a repeat I and D would be indicated at this time, as she appears to be improving continue to follow. TD: 04/01/2020 13:21 [email or web address]
[2020-04-01] MEDS ORDERED: LACTOBACILLUS RHAMNOSUS GG CAPSULE PO SCH (17:00)
--- NOTE | 2020-04-01 17:24 | PROVIDER PROGRESS NOTE ---
Subjective - Prog Note Date Prog Note Date: 04/01/20 Prog Note Time: 17:23 - Subjective Pt reports feeling: Improved Objective - Vital Signs/Intake & Output Reviewed Vital Signs: Yes Vital Signs: Vital Signs x48h Temp Pulse Resp BP Pulse Ox 04/01/20 15:37 37.5 C 78 18 120/64 97 Intake & Output: Intake & Output 03/29/20 03/30/20 03/31/20 04/01/20 23:59 23:59 23:59 23:59 Intake Total 2200 4010.083 1662.917 Balance 2200 4010.083 1662.917 - Lab Results Fish Bones: 04/01/20 07:43 04/01/20 07:43 Other Labs: Lab Results x24hrs 04/01/20 04/01/20 04/01/20 Range/Units 10:05 07:43 07:43 WBC 6.4 (4.8-10.8) x10^3/uL RBC 3.82 L (4.20-5.40) 10^6/uL Hgb 11.2 L (12.0-16.0) g/dL Hct 32.7 L (37.0-47.0) % MCV 85.6 (81.0-99.0) fL MCH 29.3 (27.0-31.0) pg MCHC 34.3 (32.0-36.0) g/dL RDW 13.2 (12.0-15.0) % Plt Count 140 (130-450) 10^3/uL MPV 9.0 (7.9-10.8) fL Neut # (Auto) 4.7 (1.5-6.6) 10^3/uL Lymph # (Auto) 0.9 L (1.5-3.5) 10^3/uL [place] # (Auto) 0.7 (0.0-1.0) 10^3/uL Eos # (Auto) 0.1 (0.0-0.7) 10^3/uL Baso # (Auto) 0.0 (0.0-0.1) 10^3/uL Absolute Nucleated RBC 0.00 x10^3/uL Nucleated RBC % 0.0 /100WBC Sodium 139 (135-145) mmol/L Potassium 3.4 L (3.5-5.0) mmol/L Chloride 101 (101-111) mmol/L Carbon Dioxide 29 (21-32) mmol/L Anion Gap 9.0 (6-13) BUN 7 (6-20) mg/dL Creatinine 0.8 (0.4-1.0) mg/dL Estimated GFR (MDRD) 73 L (>89) Glucose 120 H (70-100) mg/dL Calcium 8.4 L (8.5-10.3) mg/dL Stl C. diff Tox B Gene NEGATIVE (NEGATIVE) - Diagnostic Imaging Diagnostic Imaging Results: positive: Final report reviewed (no abcess, 3 cm fibriod.)
--- NOTE | 2020-04-01 17:33 | PROVIDER PROGRESS NOTE ---
Assessment/Plan - Problem List (1) Fever Qualifiers: Fever type: unspecified Qualified Code(s): R50.9 - Fever, unspecified Assessment/Plan: Persistent fever is concerning. Vanco added to Zosyn this morning. Await blood cx and I&D specimen cultures. Will request HAMMER ADJUSTER specialist for a pelvic exam and other recommendations (2) Inguinal abscess Assessment/Plan: Status post I&D on 03/29. Blood cultures are negative after 24 hours. Patient was on Bactrim po at home. Started on IV clindamycin in ER Change to Zosyn yesterday This a.m. with another fever, Nocturnst added Vanco to Zosyn We will monitor CBC and vitals. HAMMER ADJUSTER consult requested to day for any other recommendations (3) Hx of essential hypertension Assessment/Plan: Patient was on metoprolol and Micardis at home Doses verified but we are holding until her BP stabilizes. (4) Hypotension Assessment/Plan: Resolved today - Current Meds Current Meds: Current Medications Generic Name Dose Route Start Last Admin Trade Name Freq PRN Reason Stop Dose Admin Acetaminophen 650 mg 03/30/20 21:42 03/31/20 16:30 Tylenol PO 650 mg Q4HR PRN Administration Pain or Fever > 38C (100.4F) Piperacillin Sod/Tazobactam 100 mls @ 25 mls/hr 03/31/20 14:00 04/01/20 15:50 Sod 3.375 gm/ Sodium Chloride IV 25 mls/hr Q8H ELVA Administration Ibuprofen 400 mg 03/31/20 00:26 03/31/20 14:39 Motrin PO 400 mg Q6HR PRN Administration PAIN Lidocaine HCl 5 ml 04/01/20 13:00 04/01/20 15:53 Xylocaine Jelly 2% TOP 04/01/20 23:00 Not Given ONCE ELVA Saccharomyces Boulardii 250 mg 04/01/20 11:30 04/01/20 17:06 Florastor PO 250 mg BIDWM ELVA Administration Sodium Chloride 10 ml 03/30/20 17:41 04/01/20 14:01 Normal Saline Flush 0.9% IVP 10 ml PRN PRN Administration NEEDED PER PROVIDER ORDERS Sodium Chloride 10 ml 03/31/20 01:00 04/01/20 17:06 Normal Saline Flush 0.9% IVP 10 ml 0100,00,1700 [facility] Administration - Lab Result Fish Bone Diagrams: 04/01/20 07:43 04/01/20 07:43 - Additional Planning My Orders: My Active Orders 04/01/20 Consult [Gynecology Consult] [CONS] Routine 04/01/20 11:30 Saccharomyces Boulardii [Florastor] 250 mg PO BIDWM 04/01/20 13:00 Lidocaine Jelly 2% [Xylocaine Jelly 2%] 5 ml TOP ONCE Subjective - Subjective Patient Reports: Resting Comfortably Objective Vital Signs: Vital Signs - 24 hr 03/31/20 04/01/20 04/01/20 21:00 00:35 04:57 Temperature 37.2 C 37.1 C 37.6 C H Heart Rate [ 71 72 86 Brachial] Respiratory 18 16 16 Rate Blood Pressure 125/67 132/60 H 124/84 H [Left Brachial artery] O2 Saturation 99 100 95 04/01/20 04/01/20 08:02 15:37 Temperature 37.6 C H 37.5 C Heart Rate [ 87 78 Brachial] Respiratory 18 Rate Blood Pressure 128/59 L 120/64 [Left Brachial artery] O2 Saturation 96 97 Oxygen O2 Source Room air I&O (Last 24 Hrs): Intake and Output Totals x24h 03/30/20 03/31/20 04/01/20 23:59 23:59 23:59 Intake Total 2200 4010.083 1662.917 Balance 2200 4010.083 1662.917 General: Alert, Oriented x3 HEENT: EOMI, Mucous membr. moist/pink Neck: Supple, No JVD Neuro: Alert, Non Focal Cardiovascular: Regular rate Respiratory: No respiratory distress Abdomen: Soft Extremities: No edema - Results Results: Laboratory Results WBC 6.4 x10^3/uL (4.8-10.8) 04/01/20 07:43 RBC 3.82 10^6/uL (4.20-5.40) L 04/01/20 07:43 Hgb 11.2 g/dL (12.0-16.0) L 04/01/20 07:43 Hct 32.7 % (37.0-47.0) L 04/01/20 07:43 MCV 85.6 fL (81.0-99.0) 04/01/20 07:43 MCH 29.3 pg (27.0-31.0) 04/01/20 07:43 MCHC 34.3 g/dL (32.0-36.0) 04/01/20 07:43 RDW 13.2 % (12.0-15.0) 04/01/20 07:43 Plt Count 140 10^3/uL (130-450) 04/01/20 07:43 MPV 9.0 fL (7.9-10.8) 04/01/20 07:43 Neut # (Auto) 4.7 10^3/uL (1.5-6.6) 04/01/20 07:43 Lymph # (Auto) 0.9 10^3/uL (1.5-3.5) L 04/01/20 07:43 [place] # (Auto) 0.7 10^3/uL (0.0-1.0) 04/01/20 07:43 Eos # (Auto) 0.1 10^3/uL (0.0-0.7) 04/01/20 07:43 Baso # (Auto) 0.0 10^3/uL (0.0-0.1) 04/01/20 07:43 Absolute Nucleated RBC 0.00 x10^3/uL 04/01/20 07:43 Nucleated RBC % 0.0 /100WBC 04/01/20 07:43 PT 13.4 secs (9.9-12.6) H 03/30/20 15:21 INR 1.2 (0.8-1.2) 03/30/20 15:21 APTT 25.0 secs (24.9-33.3) 03/30/20 15:21 Sodium 139 mmol/L (135-145) 04/01/20 07:43 Potassium 3.4 mmol/L (3.5-5.0) L 04/01/20 07:43 Chloride 101 mmol/L (101-111) 04/01/20 07:43 Carbon Dioxide 29 mmol/L (21-32) 04/01/20 07:43 Anion Gap 9.0 (6-13) 04/01/20 07:43 BUN 7 mg/dL (6-20) 04/01/20 07:43 Creatinine 0.8 mg/dL (0.4-1.0) 04/01/20 07:43 Estimated GFR (MDRD) 73 (>89) L 04/01/20 07:43 Glucose 120 mg/dL (70-100) H 04/01/20 07:43 Lactic Acid 0.8 mmol/L (0.5-2.2) 03/31/20 07:31 Calcium 8.4 mg/dL (8.5-10.3) L 04/01/20 07:43 Total Bilirubin 1.0 mg/dL (0.2-1.0) 03/30/20 15:21 AST 15 IU/L (10-42) 03/30/20 15:21 ALT 21 IU/L (10-60) 03/30/20 15:21 Alkaline Phosphatase 75 IU/L (42-121) 03/30/20 15:21 C-Reactive Protein 8.7 mg/dL (0-1.0) H 03/31/20 05:10 Total Protein 8.0 g/dL (6.7-8.2) 03/30/20 15:21 Albumin 4.2 g/dL (3.2-5.5) 03/30/20 15:21 Globulin 3.8 g/dL (2.1-4.2) 03/30/20 15:21 Albumin/Globulin Ratio 1.1 (1.0-2.2) 03/30/20 15:21 Lipase 27 U/L (22-51) 03/30/20 15:21 Urine Color YELLOW 03/30/20 17:20 Urine Clarity CLEAR (CLEAR) 03/30/20 17:20 Urine pH 5.5 PH (5.0-7.5) 03/30/20 17:20 Ur Specific [place] 1.025 (1.002-1.030) 03/30/20 17:20 Urine Protein NEGATIVE mg/dL (NEGATIVE) 03/30/20 17:20 Urine Glucose (UA) NEGATIVE mg/dL (NEGATIVE) 03/30/20 17:20 Urine Ketones NEGATIVE mg/dL (NEGATIVE) 03/30/20 17:20 Urine Occult Blood MODERATE (NEGATIVE) H 03/30/20 17:20 Urine Nitrite NEGATIVE (NEGATIVE) 03/30/20 17:20 Urine Bilirubin NEGATIVE (NEGATIVE) 09/20/20 17:20 Urine Urobilinogen 0.2 (NORMAL) E.U./dL (NORMAL) 03/30/20 17:20 Ur Leukocyte Esterase NEGATIVE (NEGATIVE) 03/30/20 17:20 Urine RBC 0-5 /HPF (0-5) 03/30/20 17:20 Urine WBC 0-3 /HPF (0-5) 03/30/20 17:20 Ur Squamous Epith Cells NONE SEEN (<= Few) 03/30/20 17:20 Urine Bacteria None Seen /HPF (None Seen) 03/30/20 17:20 Ur Microscopic Review INDICATED 03/30/20 17:20 Urine Culture Comments NOT INDICATED 03/30/20 17:20 Stl C. diff Tox B Gene NEGATIVE (NEGATIVE) 04/01/20 10:05
[2020-04-01] MEDS: VANCOMYCIN INJ 1.25 GM in SODIUM CHLORIDE 0.9% 250 ML IV SCH (22:44)
[2020-04-02 05:30] LABS: BASOPHILS % (AUTO) 0.7 %; EOSINOPHILS # (AUTO) 0.2 10^3/uL (0.0-0.7); EOSINOPHILS % (AUTO) 3.6 %; HGB - HEMOGLOBIN 10.7 g/dL (12.0-16.0); LYMPHOCYTES % (AUTO) 33.2 %; MEAN CORPUSCULAR HGB CONC 31.8 g/dL (32.0-36.0); MEAN PLATELET VOLUME 9.5 fL (7.9-10.8); MONOCYTES # (AUTO) 0.7 10^3/uL (0.0-1.0); MONOCYTES % (AUTO) 11.8 %; NEUTROPHILS # (AUTO) 3.1 10^3/uL (1.5-6.6); NEUTROPHILS % (AUTO) 50.2 %; PLT - PLATELET COUNT 157 10^3/uL (130-450); RED BLOOD COUNT 3.82 10^6/uL (4.20-5.40); RED CELL DISTRIBUTION WIDTH 13.4 % (12.0-15.0); WHITE BLOOD COUNT 6.1 x10^3/uL (4.8-10.8)
[2020-04-02] MEDS: PIPERACILLIN/TAZOBACTAM 3.375 GM in SODIUM CHLORIDE 0.9% MINIBAG 100 ML IV SCH ×2 (05:32→13:51)
[2020-04-02 05:39] LABS: CALCIUM 8.2 mg/dL (8.5-10.3); CREATININE 0.9 mg/dL (0.4-1.0)
[2020-04-02] MEDS ORDERED: POTASSIUM CHLORIDE 20 MEQ TABLET PO STA (06:25)
--- NOTE | 2020-04-02 07:57 | PROVIDER PROGRESS NOTE ---
Subjective - Prog Note Date Prog Note Date: 04/02/20 Prog Note Time: 07:55 - Subjective Pt reports feeling: Improved (Pain 0/10. Up and about. voiding, loose stools started on probiotics.) Objective - Vital Signs/Intake & Output Reviewed Vital Signs: Yes Vital Signs: Vital Signs x48h Temp Pulse Resp BP Pulse Ox 04/02/20 07:53 37 C 75 16 123/57 L 99 04/02/20 05:00 37.1 C 74 16 135/65 H 98 Intake & Output: Intake & Output 03/30/20 03/31/20 04/01/20 04/02/20 23:59 23:59 23:59 23:59 Intake Total 2200 4010.083 2562.917 350 Balance 2200 4010.083 2562.917 350 - Objective General Appearance: positive: No acute distress, Alert Skin: positive: Other (left mons no erythema at drainage site indurated about 3- 4 cm. mild tenderness. no lymphadenopathy.) - Lab Results Fish Bones: 04/02/20 05:10 04/02/20 05:10 Other Labs: Lab Results x24hrs 04/02/20 04/02/20 04/01/20 Range/Units 05:10 05:10 10:05 WBC 6.1 (4.8-10.8) x10^3/uL RBC 3.82 L (4.20-5.40) 10^6/uL Hgb 10.7 L (12.0-16.0) g/dL Hct 33.6 L (37.0-47.0) % MCV 88.0 (81.0-99.0) fL MCH 28.0 (27.0-31.0) pg MCHC 31.8 L (32.0-36.0) g/dL RDW 13.4 (12.0-15.0) % Plt Count 157 (130-450) 10^3/uL MPV 9.5 (7.9-10.8) fL Neut # (Auto) 3.1 (1.5-6.6) 10^3/uL Lymph # (Auto) 2.0 (1.5-3.5) 10^3/uL [place] # (Auto) 0.7 (0.0-1.0) 10^3/uL Eos # (Auto) 0.2 (0.0-0.7) 10^3/uL Baso # (Auto) 0.0 (0.0-0.1) 10^3/uL Absolute Nucleated RBC 0.00 x10^3/uL Nucleated RBC % 0.0 /100WBC Sodium 140 (135-145) mmol/L Potassium 3.3 L (3.5-5.0) mmol/L Chloride 104 (101-111) mmol/L Carbon Dioxide 28 (21-32) mmol/L Anion Gap 8.0 (6-13) BUN 7 (6-20) mg/dL Creatinine 0.9 (0.4-1.0) mg/dL Estimated GFR (MDRD) 64 L (>89) Glucose 102 H (70-100) mg/dL Calcium 8.2 L (8.5-10.3) mg/dL Stl C. diff Tox B Gene NEGATIVE (NEGATIVE) 04/01/20 Range/Units 07:43 WBC (4.8-10.8) x10^3/uL RBC (4.20-5.40) 10^6/uL Hgb (12.0-16.0) g/dL Hct (37.0-47.0) % MCV (81.0-99.0) fL MCH (27.0-31.0) pg MCHC (32.0-36.0) g/dL RDW (12.0-15.0) % Plt Count (130-450) 10^3/uL MPV (7.9-10.8) fL Neut # (Auto) (1.5-6.6) 10^3/uL Lymph # (Auto) (1.5-3.5) 10^3/uL [place] # (Auto) (0.0-1.0) 10^3/uL Eos # (Auto) (0.0-0.7) 10^3/uL Baso # (Auto) (0.0-0.1) 10^3/uL Absolute Nucleated RBC x10^3/uL Nucleated RBC % /100WBC Sodium 139 (135-145) mmol/L Potassium 3.4 L (3.5-5.0) mmol/L Chloride 101 (101-111) mmol/L Carbon Dioxide 29 (21-32) mmol/L Anion Gap 9.0 (6-13) BUN 7 (6-20) mg/dL Creatinine 0.8 (0.4-1.0) mg/dL Estimated GFR (MDRD) 73 L (>89) Glucose 120 H (70-100) mg/dL Calcium 8.4 L (8.5-10.3) mg/dL Stl C. diff Tox B Gene (NEGATIVE) Assessment/Plan - Problem List (1) Inguinal abscess Impression: realy of the mons. continued improvement. now afebrile. need 48 hours .
[2020-04-02] MEDS: SACCHAROMYCES BOULARDII 250 MG CAPSULE PO SCH ×2 (08:26→16:46)
--- NOTE | 2020-04-02 08:31 | PROVIDER PROGRESS NOTE ---
Assessment/Plan - Problem List (1) Staph infection Assessment/Plan: The specimen that was I&D'd on 03/29/20, is growing Staph species. Await identification and sens. (2) Fever Qualifiers: Fever type: unspecified Qualified Code(s): R50.9 - Fever, unspecified Assessment/Plan: Still had a low-grade fever, but no more spikes. WBC, which was very concerning because it was dropping has recovered. Await Cx and sen results of the abscess cx. (3) Inguinal abscess Assessment/Plan: The specimen that was I&D'd is growing Staph. Await identification and sens. Appreciate STEWARDESS SUPERVISOR consult and Dr Santo is following along daily. (4) Hx of essential hypertension Assessment/Plan: Her BP is still running normal, at 120 systolic, without any of her home meds being dosed: Metoprolol Tartrate or Micardis. Will resume these if she gets hypertensive. (5) Hypotension Assessment/Plan: Resolved - Current Meds Current Meds: Current Medications Generic Name Dose Route Start Last Admin Trade Name Freq PRN Reason Stop Dose Admin Acetaminophen 650 mg 03/30/20 21:42 03/31/20 16:30 Tylenol PO 650 mg Q4HR PRN Administration Pain or Fever > 38C (100.4F) Piperacillin Sod/Tazobactam 100 mls @ 25 mls/hr 03/31/20 14:00 04/02/20 05:32 Sod 3.375 gm/ Sodium Chloride IV 25 mls/hr Q8H ELVA Administration Vancomycin HCl 1.25 gm/ Sodium 250 mls @ 167 mls/hr 04/01/20 23:00 04/02/20 00:44 Chloride IV Infused Q12H ELVA Infusion Ibuprofen 400 mg 03/31/20 00:26 03/31/20 14:39 Motrin PO 400 mg Q6HR PRN Administration PAIN Saccharomyces Boulardii 250 mg 04/01/20 11:30 04/01/20 17:06 Florastor PO 250 mg BIDWM ELVA Administration Sodium Chloride 10 ml 03/30/20 17:41 04/01/20 21:56 Normal Saline Flush 0.9% IVP 10 ml PRN PRN Administration NEEDED PER PROVIDER ORDERS Sodium Chloride 10 ml 03/31/20 01:00 04/01/20 23:47 Normal Saline Flush 0.9% IVP Not Given 0100,0900,1700 ELVA - Lab Result Fish Bone Diagrams: 04/02/20 05:10 04/02/20 05:10 - Additional Planning My Orders: My Active Orders 04/01/20 11:30 Saccharomyces Fosteri [Florastor] 250 mg PO BIDWM Subjective - Subjective Patient Reports: Feeling Better, Resting Comfortably Objective Vital Signs: Vital Signs - 24 hr 04/01/20 04/01/20 04/01/20 15:37 19:40 23:46 Temperature 37.5 C 37.6 C H 37 C Heart Rate [ 78 82 75 Brachial] Respiratory 18 18 18 Rate Blood Pressure 120/64 123/61 119/55 L [Left Brachial artery] O2 Saturation 97 97 100 04/02/20 04/02/20 05:00 07:53 Temperature 37.1 C 37 C Heart Rate [ 74 75 Brachial] Respiratory 16 16 Rate Blood Pressure 135/65 H 123/57 L [Left Brachial artery] O2 Saturation 98 99 Oxygen O2 Source Room air I&O (Last 24 Hrs): Intake and Output Totals x24h 03/31/20 04/01/20 04/02/20 23:59 23:59 23:59 Intake Total 4010.083 2562.917 350 Balance 4010.083 2562.917 350 General: Alert, Oriented x3 HEENT: Atraumatic, Mucous membr. moist/pink Neck: Supple, No JVD Neuro: Alert, Non Focal Cardiovascular: Regular rate Respiratory: No respiratory distress Abdomen: Soft Extremities: No edema - Results Results: Laboratory Results WBC 6.1 x10^3/uL (4.8-10.8) 04/02/20 05:10 RBC 3.82 10^6/uL (4.20-5.40) L 04/02/20 05:10 Hgb 10.7 g/dL (12.0-16.0) L 04/02/20 05:10 Hct 33.6 % (37.0-47.0) L 04/02/20 05:10 MCV 88.0 fL (81.0-99.0) 04/02/20 05:10 MCH 28.0 pg (27.0-31.0) 04/02/20 05:10 MCHC 31.8 g/dL (32.0-36.0) L 04/02/20 05:10 RDW 13.4 % (12.0-15.0) 04/02/20 05:10 Plt Count 157 10^3/uL (130-450) 04/02/20 05:10 MPV 9.5 fL (7.9-10.8) 04/02/20 05:10 Neut # (Auto) 3.1 10^3/uL (1.5-6.6) 04/02/20 05:10 Lymph # (Auto) 2.0 10^3/uL (1.5-3.5) 04/02/20 05:10 [place] # (Auto) 0.7 10^3/uL (0.0-1.0) 04/02/20 05:10 Eos # (Auto) 0.2 10^3/uL (0.0-0.7) 04/02/20 05:10 Baso # (Auto) 0.0 10^3/uL (0.0-0.1) 04/02/20 05:10 Absolute Nucleated RBC 0.00 x10^3/uL 04/02/20 05:10 Nucleated RBC % 0.0 /100WBC 04/02/20 05:10 PT 13.4 secs (9.9-12.6) H 03/30/20 15:21 INR 1.2 (0.8-1.2) 03/30/20 15:21 APTT 25.0 secs (24.9-33.3) 03/30/20 15:21 Sodium 140 mmol/L (135-145) 04/02/20 05:10 Potassium 3.3 mmol/L (3.5-5.0) L 04/02/20 05:10 Chloride 104 mmol/L (101-111) 04/02/20 05:10 Carbon Dioxide 28 mmol/L (21-32) 04/02/20 05:10 Anion Gap 8.0 (6-13) 04/02/20 05:10 BUN 7 mg/dL (6-20) 04/02/20 05:10 Creatinine 0.9 mg/dL (0.4-1.0) 04/02/20 05:10 Estimated GFR (MDRD) 64 (>89) L 04/02/20 05:10 Glucose 102 mg/dL (70-100) H 04/02/20 05:10 Lactic Acid 0.8 mmol/L (0.5-2.2) 03/31/20 07:31 Calcium 8.2 mg/dL (8.5-10.3) L 04/02/20 05:10 Total Bilirubin 1.0 mg/dL (0.2-1.0) 03/30/20 15:21 AST 15 IU/L (10-42) 03/30/20 15:21 ALT 21 IU/L (10-60) 03/30/20 15:21 Alkaline Phosphatase 75 IU/L (42-121) 03/30/20 15:21 C-Reactive Protein 8.7 mg/dL (0-1.0) H 03/31/20 05:10 Total Protein 8.0 g/dL (6.7-8.2) 03/30/20 15:21 Albumin 4.2 g/dL (3.2-5.5) 03/30/20 15:21 Globulin 3.8 g/dL (2.1-4.2) 03/30/20 15:21 Albumin/Globulin Ratio 1.1 (1.0-2.2) 03/30/20 15:21 Lipase 27 U/L (22-51) 03/30/20 15:21 Urine Color YELLOW 03/30/20 17:20 Urine Clarity CLEAR (CLEAR) 03/30/20 17:20 Urine pH 5.5 PH (5.0-7.5) 03/30/20 17:20 Ur Specific [place] 1.025 (1.002-1.030) 03/30/20 17:20 Urine Protein NEGATIVE mg/dL (NEGATIVE) 03/30/20 17:20 Urine Glucose (UA) NEGATIVE mg/dL (NEGATIVE) 03/30/20 17:20 Urine Ketones NEGATIVE mg/dL (NEGATIVE) 03/30/20 17:20 Urine Occult Blood MODERATE (NEGATIVE) H 03/30/20 17:20 Urine Nitrite NEGATIVE (NEGATIVE) 03/30/20 17:20 Urine Bilirubin NEGATIVE (NEGATIVE) 03/30/20 17:20 Urine Urobilinogen 0.2 (NORMAL) E.U./dL (NORMAL) 03/30/20 17:20 Ur Leukocyte Esterase NEGATIVE (NEGATIVE) 03/30/20 17:20 Urine RBC 0-5 /HPF (0-5) 03/30/20 17:20 Urine WBC 0-3 /HPF (0-5) 03/30/20 17:20 Ur Squamous Epith Cells NONE SEEN (<= Few) 03/30/20 17:20 Urine Bacteria None Seen /HPF (None Seen) 03/30/20 17:20 Ur Microscopic Review INDICATED 03/30/20 17:20 Urine Culture Comments NOT INDICATED 03/30/20 17:20 Stl C. diff Tox B Gene NEGATIVE (NEGATIVE) 04/01/20 10:05
[2020-04-02 10:45] LABS: VANCOMYCIN,TROUGH 13.1 ug/mL (10.0-20.0)
--- NOTE | 2020-04-02 11:00 | PHARMACY PROGRESS NOTE ---
- Therapy Status Vancomycin regimen day #: 2 Therapy status: Awaiting steady state Basis for treatment: Empirical Treatment indication: ABSCESS WITH POSSIBLE SEPSIS Trough goal: 15-20 Concurrent antibiotics: ZOSYN EXTENDED INFUSION - CHASE Risk Risk level for Acute Kidney Injury: High Acute Kidney Injury risk factors: Piperacillin/Tozobactam, IV contrast within 72 hrs, Goal trough >15, Chronic baseline hypertension - Monitoring and Recommendation Clinical response to treatment: I&O Previous 24 hours 03/31/20 04/01/20 04/02/20 23:59 23:59 23:59 Intake Total 4010.083 2562.917 670 Balance 4010.083 2562.917 670 Lab Results 04/02/20 04/01/20 03/31/20 05:10 07:43 05:10 BUN 7 7 13 Creatinine 0.9 0.8 0.9 Estimated GFR (MDRD) 64 L 73 L 64 L 03/30/20 15:21 BUN 13 Creatinine 0.9 Estimated GFR (MDRD) 64 L Vancomycin Monitoring 04/02/20 10:24 Vancomycin Trough 13.1 Cultures 03/30/20 15:27 Blood - Left Arm Blood Culture - Preliminary NO GROWTH AFTER 2 DAYS 03/30/20 15:21 Blood - Right Arm Blood Culture - Preliminary NO GROWTH AFTER 2 DAYS Monitoring plan: Daily serum creatinine, Draw trough early (while loading dose may still be reflected in result, drawing early to determine if dosing is supratherapeutic.), Suggest ongoing fluid replacement Next trough due prior to maintenance dose #: 4 Next trough due (date/time): 04/03 1030 Areas for additional monitoring: Therapy de-escalation based on culture results, Acute Kidney Injury, Adverse Drug Event concerns Pharmacy recommendation: Continue current regime
[2020-04-02] MEDS: VANCOMYCIN INJ 1.25 GM in SODIUM CHLORIDE 0.9% 250 ML IV SCH ×2 (11:19→22:10)
[2020-04-02] MEDS: SODIUM CHLORIDE FLUSH 0.9% 10 ML SYRINGE IVP SCH ×2 (11:20→16:47)
[2020-04-02] MEDS: SODIUM CHLORIDE FLUSH 0.9% 10 ML SYRINGE IVP PRN ×2 (13:04→13:51)
[2020-04-03] MEDS: SODIUM CHLORIDE FLUSH 0.9% 10 ML SYRINGE IVP SCH ×2 (01:06→08:28)
[2020-04-03] MEDS: PIPERACILLIN/TAZOBACTAM 3.375 GM in SODIUM CHLORIDE 0.9% MINIBAG 100 ML IV SCH ×3 (01:06→14:35)
[2020-04-03 05:02] LABS: BASOPHILS % (AUTO) 0.6 %; EOSINOPHILS # (AUTO) 0.4 10^3/uL (0.0-0.7); EOSINOPHILS % (AUTO) 5.8 %; HGB - HEMOGLOBIN 10.8 g/dL (12.0-16.0); LYMPHOCYTES % (AUTO) 31.7 %; MEAN CORPUSCULAR HEMOGLOBIN 28.1 pg (27.0-31.0); MEAN CORPUSCULAR HGB CONC 32.2 g/dL (32.0-36.0); MEAN PLATELET VOLUME 9.1 fL (7.9-10.8); MONOCYTES # (AUTO) 0.6 10^3/uL (0.0-1.0); MONOCYTES % (AUTO) 10.3 %; NEUTROPHILS # (AUTO) 3.2 10^3/uL (1.5-6.6); NEUTROPHILS % (AUTO) 51.1 %; PLT - PLATELET COUNT 170 10^3/uL (130-450); RED BLOOD COUNT 3.85 10^6/uL (4.20-5.40); RED CELL DISTRIBUTION WIDTH 13.2 % (12.0-15.0); WHITE BLOOD COUNT 6.2 x10^3/uL (4.8-10.8)
[2020-04-03 05:08] LABS: CALCIUM 8.7 mg/dL (8.5-10.3); CREATININE 0.8 mg/dL (0.4-1.0)
[2020-04-03] MEDS: SACCHAROMYCES BOULARDII 250 MG CAPSULE PO SCH (08:28)
--- NOTE | 2020-04-03 09:13 | Discharge Plan ---
Discharge Plan Problem Reviewed?: Yes Disposition: Home, Self Care Condition: Stable Prescriptions: Amox/Clav 875/125 [Augmentin] 1 each PO Q12H #14 tablet Doxycycline Monohydrate 100 mg PO BID #14 tablet Saccharomyces Boulardii [Florastor] 250 mg PO BIDWM #14 capsule Diet: Regular Activity Restrictions: Activity as Tolerated Shower Restrictions: No Driving Restrictions: No Health Concerns: You were admitted for management of an abscess in the groin area. It was slow to respond to usual treatment, and you needed strong IV antibiotics. The wound specimen cultures has grown "skin organisms", with preliminary result being Staphylococcus bacteria. The INTELLIGENCE AGENT specialist, Dr Santo, was pleased with how the healing is going and therefore you are being discharged today. You should finish a course of antibiotics using Augmentin and Doxycycline, take them until they are done; the prescriptions were electronically sent to your [facility] pharmacy in [place]. Also take the prescribed probiotics, to combat the diarrhea and also eat yogurt and other foods that contain probiotics. You may start twice a day soaks of the area, using a warm, wet gauze applied for 5-10 min twice a day, then keep the area loosely covered with dry gauze. Do this for 5-7 days. You should see your PCP at [facility] (Dr Roque or equivalent), or Gynecolog ist, in 5-10 days for hospital follow-up. Dr James Santo (Ball Truing Machine Operator) office # is [phone]. You may resume your Metoprolol medication starting tomorrow 04/04/20 and resume the Telmisartan starting on 04/07/20. Plan of Treatment: As above. Care Goals: Improvement in symptoms and stabilization are the goals. Assessment: Patient understands and is agreeable with the plan. Additional Instructions or Follow Up instructions: If you have new or worsening symptoms, call your PCP or Ball Truing Machine Operator for advice, or come to the ER. No Smoking: If you smoke, Please STOP! Call for help. Follow-up with: TELLY ROQUE MD [Physician No Access] -
--- NOTE | 2020-04-03 10:34 | DISCHARGE SUMMARY ---
Discharge Summary Admit Date: 03/30/20 Discharge Date: 04/03/20 Discharging Provider: Dr Rosalee Jin Primary Care Provider: [facility] Code Status: Attempt Resuscitation Condition at Discharge: Stable Discharge Disposition: 01 Home, Self Care - [facility] History of Present Illness: From the admission H&P of Dr Efren العراقي: Patient is a 59-year-old female with history of hypertension who presented to the ED with complaint of a fever, and increased redness around her left groin at an abscess site. This started when she was seen by her primary care physician 3 days ago when she initially started noticing redness and swelling in the pubic area. She was prescribed Bactrim which she has been taking. At the time of prescription she was advised to go to the ED or return to her PCP if there was increase redness or swelling in the area. She presented to the emergency department at [facility] on March 29, 2020 for increased redness. The abscess was incised and drained. Since drainage yesterday she has not been feeling well and presented today with reported temperature of 39.5 C. Her labs were unremarkable however due to the fever and increased swelling she is being admitted for IV antibiotics and closer monitoring. At bedside she denied chest pain, dyspnea, abdominal pain, nausea, vomiting or lower extremity edema. - CONSULTS | PROCEDURES Consultations: Dr James Santo, FORENSIC ACCOUNTANT - HOSPITAL COURSE Hospital Course: (1) Inguinal abscess She was started on iv Clindamycin, but she continued to have a fever, dropped her WBC and was hypotensive on the 2nd day, which was concerning for sepsis. Therefore, the antibiotics were widened and she was put on iv Vanco and iv Pip/Tazo. The area was kept covered with gauze. She had a pelvic exam and FORENSIC ACCOUNTANT consult by Dr Santo, who advised continued management and await discharge until she was afebrile for 48 hours. She was discharge on antibiotoics and advised a re-eval of the wound by her PCP or FORENSIC ACCOUNTANT in 5-10 days. (2) SIRS On the 2nd day she had BP <90, tachycardia with HR 102, continued fever at 39.5- 39.1 degrees C, and WBC dropped to 3.6. (3) Hypotension Her BP meds were on hold this entire hospitalization due to BP as low as 82/44 on her 2nd day of hospitalization, which then improved to 120 systolic after iv hydration was started. (4) Staph infection The specimen sent from the I&D on 03/29/20, was initially identified as growing Staph species. The final report stated "skin organisms". She was discharged home to take 7 more days of oral antibiotics with Doxycycline plus Augmentin. A probiotic was also prescribed for loose stools. (5) Hx of essential hypertension Her BP was low, then normal, at 120-130 systolic, without any of her home meds being dosed: Metoprolol Tartrate or Micardis. She was advised to resume these these one at a time after discharge, starting with Metoprolol on 04/04, then Micardis on 04/07. - ALLERGIES Allergies/Adverse Reactions: Allergies Allergy/AdvReac Type Severity Reaction Status Date / Time No Known Drug Allergies Allergy Verified 03/30/20 15:00 - MEDICATIONS Home Medications: Ambulatory Orders Medication Instructions Recorded Confirmed Albuterol Sulf [Ventolin Hfa 1 - 2 puffs INH Q4HR PRN 10/03/16 03/31/20 Inhaler] Aspirin 81 mg PO Q2D 10/03/16 03/31/20 Metoprolol Tartrate 25 mg ORAL DAILY 10/03/16 03/31/20 Telmisartan [Micardis] 20 mg PO DAILY 10/03/16 03/31/20 Amox/Clav 875/125 [Augmentin] 1 each PO Q12H #14 tablet 04/03/20 Doxycycline Monohydrate 100 mg PO BID #14 tablet 04/03/20 Saccharomyces Boulardii [Florastor] 250 mg PO BIDWM #14 capsule 04/03/20 - PHYSICAL EXAM AT DISCHARGE General Appearance: positive: No acute distress, Alert Eyes Bilateral: positive: Normal inspection, EOMI ENT: positive: ENT inspection nml, No signs of dehydration Neck: positive: Nml inspection, No JVD Respiratory: positive: No respiratory distress Cardiovascular: positive: Regular rate & rhythm Abdomen: positive: Non-tender, Nml bowel sounds, No distention Skin: positive: Color nml Extremities: positive: Non-tender, No pedal edema Neurologic/Psychiatric: positive: Oriented x3 (Non-focal ) - LABS Result Diagrams: 04/03/20 04:40 04/03/20 04:40 - DIAGNOSTIC IMAGING Diagnostic Imaging Results: Final report reviewed - SEPSIS Sepsis Criteria: Recorded Temperature greater than 38.3C or Less than 36C, WBC count greater than 12,000 or less than 4000, SBP less than 90 mmHg
[2020-04-03 12:14] VITALS: BP 139/76
[2020-04-03] MEDS: VANCOMYCIN INJ 1.25 GM in SODIUM CHLORIDE 0.9% 250 ML IV SCH (12:25)
== END 2020-04-03 14:25 | disposition home or self-care (01) | DRG 603 ==
LOC: ED 14:41 → MS2 17:41 → OBSVTOIN 03-31 07:15
PROVIDERS: ADMIT Specialist; ATTEND Internal Medicine
DX: L02.214 Cutaneous abscess of groin (principal); B95.8 Unspecified staphylococcus as the cause of diseases classified elsewhere; I95.9 Hypotension, unspecified; I10 Essential (primary) hypertension
CPT/HCPCS: 36415; 71045; 72193; 76830; 76856; 80048; 80053; 80202; 81001; 83605; 83690; 85025; 85610; 85730; 86140; 87040; 87493; 96361; 96365; 96366; 99284; 99285; A9270; J3370; J7120; Q9967; 81003; 87086

== ENCOUNTER 2022-10-19 08:00 | Outpatient (CLI) | payer OTHER | END 2022-10-19 23:59 | disposition home or self-care (01) | LOC: LAB.WC 08:00 | PROVIDERS: ATTEND Obstetrics & Gynecology | DX: N76.4 Abscess of vulva (principal) | CPT/HCPCS: 87070; 87205 ==